=== PATIENT | male | born 1940 | race Native Hawaiian/Other Pacific Islander ===

== ENCOUNTER 2016-11-04 14:57 | Emergency (ER) | payer MEDICARE, OTHER ==
[2016-11-04] MEDS ORDERED: Dextrose 50% SYRINGE Inj (50 ml) ONE (15:00)
[2016-11-04 15:01] VITALS: BMI 29.0
[2016-11-04 15:07] LABS: ADD MANUAL DIFF? NO
[2016-11-04 15:11] LABS: BASO # 0.03 K/mm3 (0.0-2.0); BASO % 0.2 % (0.0-3.0); EOS # 0.2 (0.0-0.7); EOS % 1.9 % (1.5-5.0); GRAN # 7.19 (1.4-6.5); GRAN % 57.4 % (50.0-68.0); HEMATOCRIT 37.5 % (42.0-52.0); LYMPH # 4.2 (1.2-3.4); LYMPH % 33.3 % (22.0-35.0); MEAN CORPUSCULAR HEMOGLOBIN 29.7 pg (25.0-35.0); MEAN CORPUSCULAR HGB CONC 34.1 g/dl (31.0-37.0); MEAN PLATELET VOLUME 9.7 fl (7.0-11.0); MONO # 0.9 (0.1-0.6); MONO % 7.2 % (1.0-6.0); PLATELET COUNT 196 10^3/uL (120.0-450.0); RED CELL DISTRIBUTION WIDTH 14.6 % (11.5-14.5); WHITE BLOOD COUNT 12.5 10^3/ul (4.5-11.0)
[2016-11-04 15:20] LABS: BILIRUBIN,TOTAL 0.9 mg/dL (0.2-1.3); CALCIUM 8.6 mg/dL (8.4-10.5); MAGNESIUM 1.7 mg/dL (1.7-2.2); TOTAL PROTEIN 7.3 g/dL (5.8-8.3)
--- NOTE | 2016-11-04 15:20 | ED PDOC ---
Arrival/HPI - General Time Seen by Provider: 11/04/16 15:03 Historian: Patient - Critical Care Critical Care Minutes: 30 minutes - History of Present Illness Narrative History of Present Illness (Text): 11/04/16 15:10 Dawit Rendon is a 76 year old male, whose past medical history includes diabetes and hypertension, who presents to the emergency department complaining of low sugar levels according to family. Patient was at home this morning where he ate breakfast and took 30 units of humalog. Patient took a nap when family later heard him moaning. Patient's family called EMS thinking the patient had low sugar levels. En route to hospital, patient unable to take oral glucose. In emergency department, patient was given dextrose 1 amp which brought patient back to baseline. Patient states that he remembers taking his humalog medication this morning. Patient denies any fever, cough, urinary symptoms, diarrhea, or any other complaint at this time. Patient is noted to have slurred speech but patient's says it is due to his dentures. PMD Dr. Reza Time/Duration: 4-6 hours Symptom Onset: Gradual Symptom Course: Unchanged Severity Level: Mild Activities at Onset: Rest Context: Home Past Medical History - Provider Review Nursing Documentation Reviewed: Yes Family/Social History - Physician Review Nursing Documentation Reviewed: Yes Family/Social History: No Known Family HX Allergies/Home Meds Allergies/Adverse Reactions: Allergies No Known Allergies Allergy (Verified 11/04/16 15:01) Home Medications: Home Meds Medication Instructions Recorded Confirmed Allopurinol [Zyloprim] 10 mg PO DAILY 11/04/16 11/04/16 Atorvastatin [Lipitor] 40 mg PO HS 11/04/16 11/04/16 Dabigatran [Pradaxa] 75 mg PO DAILY 11/04/16 11/04/16 Finesteride 150 mg PO BID 11/04/16 11/04/16 Glimepiride [Amaryl] 4 mg PO DAILY 11/04/16 11/04/16 Humolog 30 units SQ TID 11/04/16 11/04/16 Insulin Glargine, Recombina 32 units SQ DAILY 11/04/16 11/04/16 [Lantus] Losartan [Cozaar] 100 mg PO DAILY 11/04/16 11/04/16 Metoprolol Tartrate [Lopressor] 50 mg PO DAILY 11/04/16 11/04/16 Tamsulosin [Flomax] 0.4 mg PO DAILY 11/04/16 11/04/16 amLODIPine [Norvasc] 10 mg PO DAILY 11/04/16 11/04/16 Review of Systems - Physician Review All systems were reviewed & negative as marked: Yes - Review of Systems Constitutional: Other (Low sugar level ). absent: Fevers, Night Sweats Eyes: absent: Vision Changes ENT: absent: Hearing Changes Respiratory: absent: SOB Cardiovascular: absent: Chest Pain Gastrointestinal: absent: Abdominal Pain Genitourinary Male: absent: Urinary Output Changes Musculoskeletal: absent: Back Pain, Neck Pain Skin: absent: Rash Neurological: absent: Headache Endocrine: absent: Diaphoresis Hemo/Lymphatic: absent: Easy Bleeding Psychiatric: absent: Depression Physical Exam Vital Signs Reviewed: Yes Vital Signs Temp Pulse Resp BP Pulse Ox 11/04/16 16:40 74 16 143/73 97 11/04/16 14:58 98.8 F 77 18 165/86 H 99 Temperature: Afebrile Blood Pressure: Hypertensive Pulse: Regular Respiratory Rate: Normal Appearance: Positive for: Well-Appearing, Non-Toxic, Comfortable Pain Distress: None Mental Status: Positive for: Alert and Oriented X 3 Finger Stick Blood Glucose: 223 - Systems Exam Head: Present: Atraumatic, Normocephalic Pupils: Present: PERRL Extroacular Muscles: Present: EOMI Conjunctiva: Present: Normal Mouth: Present: Moist Mucous Membranes Neck: Present: Normal Range of Motion Respiratory/Chest: Present: Clear to Auscultation, Good Air Exchange. No: Respiratory Distress, Accessory Muscle Use Cardiovascular: Present: Regular Rate and Rhythm, Normal S1, S2. No: Murmurs Abdomen: Present: Normal Bowel Sounds. No: Tenderness, Distention, Peritoneal Signs Back: Present: Normal Inspection Upper Extremity: Present: Normal Inspection. No: Cyanosis, Edema Lower Extremity: Present: Normal Inspection. No: Edema Neurological: Present: GCS=15, CN II-XII Intact, Speech Normal (initially slurred which quickly resolved after dextrose), Motor Func Grossly Intact, Normal Sensory Function, Normal Cerebellar Funct, Norm Deep Tendon Reflexes, Gait Normal, Memory Normal, Normal 2Pt Descrimination Skin: Present: Warm, Dry, Normal Color. No: Rashes Psychiatric: Present: Alert, Oriented x 3, Normal Insight, Normal Concentration Medical Decision Making ED Course and Treatment: 11/04/16 15:21 Impression: 76 year old male, brought in by EMS and accompanied by family, complaining of low sugar levels. Differential Diagnosis included but are not limited to: hypoglycemia, second to medication and diet Plan: -- EKG -- Head CT w/o contrast -- Chest X-ray -- Urinalysis -- Labs -- Reassess and disposition Progress Notes: EKG: Ordered, reviewed, and independently interpreted the EKG. Rate : 78 BPM Rhythm : NSR Interpretation : RBBB 11/04/16 16:[address] w/o contrast: Creator : Nate Zaman MD FINDINGS: HEMORRHAGE:No acute parenchymal, subarachnoid nor extra-axial hemorrhage. BRAIN: Moderate chronic periventricular white matter ischemic changes seen extending peripherally into the deep and subcortical regions bilaterally. More discrete chronic appearing infarct in the left frontal and right of parietal regions. There may also be some extension of these changes into white matter tracts of both basal nuclei. Dense vascular calcifications both carotid siphons. VENTRICLES:Mild moderate generalized volume loss. CALVARIUM:No acute calvarial fractures. PARANASAL SINUSES:Unremarkable as visualized. No significant inflammatory changes. MASTOID AIR CELLS:Unremarkable as visualized. No inflammatory changes. OTHER FINDINGS:Changes of bilateral cataract surgery. Findings consistent with exophthalmos however clinical correlation with ophthalmologic examination. IMPRESSION: No acute intracranial hemorrhage. Moderate chronic white matter ischemic changes with extension of these changes into white matter tracts of both basal nuclei. 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 Mild moderate generalized volume loss. 11/04/16 16:22 On reevaluation, Patient is feeling better, A&O x3, no slurred speech, and normal neuro exam. Family states that patient creatinine levels of 3.0 is baseline for him, will follow-up with PMD. They also state that after discussion they feel that he may have taken too much insulin since he didn't eat much for breakfast. He is comfortable to go home and will f/u with his PMD in 1-2days. Repeat FS improved. - Critical Care Critical Care Minutes: 30 minutes - Lab Interpretations Lab Results: 11/04/16 15:00 11/04/16 15:00 Lab Results 11/04/16 16:32: POC Glucose (mg/dL) 93 04/15/17 16:30: Urine Color Yellow, Urine Appearance Clear, Urine pH 6.0, Ur Specific [place] 1.020, Urine Protein 100 H, Urine Glucose (UA) 100 H, Urine Ketones Negative, Urine Blood Trace-lysed H, Urine Nitrate Negative, Urine Bilirubin Negative, Urine Urobilinogen 0.2, Ur Leukocyte Esterase Negative, Urine RBC 1 - 3, Urine WBC 0 - 2, Ur Epithelial Cells 0 - 2, Amorphous Sediment Few, Urine Bacteria Many, Urine Other [place] 11/04/16 15:03: POC Glucose (mg/dL) 223 H 11/04/16 15:00: WBC 12.5 H, RBC 4.31, Hgb 12.8 L, Hct 37.5 L, MCV 87.0, MCH 29.7 , MCHC 34.1, RDW 14.6 H, Plt Count 196, MPV 9.7, Gran % 57.4, Lymph % (Auto) 33.3, [place] % (Auto) 7.2 H, Eos % (Auto) 1.9, Baso % (Auto) 0.2, Gran # 7.19 H, Lymph # 4.2 H, [place] # 0.9 H, Eos # 0.2, Baso # 0.03, Sodium 140, Potassium 3.8, Chloride 104, Carbon Dioxide 25, Anion Gap 15, BUN 40 H, Creatinine 3.0 H, Est GFR ( Amer) 25, Est GFR (Non-Af Amer) 21, Random Glucose 33 L*, Calcium 8.6, Magnesium 1.7, Total Bilirubin 0.9, AST 36, ALT 29, Alkaline Phosphatase 83 , Total Protein 7.3, Albumin 3.7, Globulin 3.7, Albumin/Globulin Ratio 1.0 L I have reviewed the lab results: Yes - RAD Interpretation Radiology Orders: 11/04/16 15:04 CXR [CHEST PORTABLE] [RAD] Stat 11/04/16 15:09 HEAD W/O CONTRAST [CT] Stat - Medication Orders Current Medication Orders: Discontinued Medications Dextrose (Dextrose 50% Inj) Confirm Administered Dose 50 ml .ROUTE .STK-MED ONE Stop: 11/04/16 15:01 Last Admin: 11/04/16 14:55 Dose: 50 ML - Scribe Statement The provider has reviewed the documentation as recorded by the Gisel Valle Provider Scribe Attestation: All medical record entries made by the Scribe were at my direction and personally dictated by me. I have reviewed the chart and agree that the record accurately reflects my personal performance of the history, physical exam, medical decision making, and the department course for this patient. I have also personally directed, reviewed, and agree with the discharge instructions and disposition. Disposition/Present on Arrival - Present on Arrival Any Indicators Present on Arrival: No - Disposition Have Diagnosis and Disposition been Completed?: Yes Diagnosis: Hypoglycemia Disposition: HOME/ ROUTINE Disposition Time: 16:45 Patient Plan: Discharge Patient Problems: Current Active Problems Problem Status Diagnosed Hypoglycemia Acute Condition: IMPROVED Discharge Instructions (ExitCare): Diabetic Hypoglycemia (ED) Additional Instructions: Mr Rendon thank you for letting us take care of you today. Your provider was Dr. Plata. You were treated for Hypoglycemia. The emergency medical care you received today was directed at your acute symptoms. If you were prescribed any medication, please fill it and take as directed. It may take several days for your symptoms to resolve. Return to the Emergency Department if your symptoms worsen, do not improve, or if you have any other problems. Please contact your doctor or call one of the physicians/clinics you have been referred to that are listed on the Patient Visit Information form that is included in your discharge packet. Bring any paperwork you were given at discharge with you along with any medications you are taking to your follow up visit. Our treatment cannot replace ongoing medical care by a primary care provider (PCP) outside of the emergency department. Thank you for allowing the [facility] team to be part of your care today. If you had an X-Ray or CT scan: A Radiologist will review the ED reading if any change in treatment is needed we will contact you. If you had a blood, urine, or wound culture: It will take several days for the results, if any change in treatment is needed we will contact you. If you had an STI test: It will take 48 hours for the results. Please call after 1 week if you have not heard back. Referrals: Tara Reza MD [Family Provider] - Follow up with primary
[2016-11-04 15:44] LABS: POTASSIUM 3.8 mmol/L (3.6-5.0)
--- NOTE | 2016-11-04 15:50 | CT ---
PROCEDURE: CT HEAD WITHOUT CONTRAST. HISTORY: altered mental status COMPARISON: None available. TECHNIQUE: Axial computed tomography images were obtained through the head/brain without intravenous contrast. Radiation dose: Total exam DLP = 675.45 mGy-cm. This CT exam was performed using one or more of the following dose reduction techniques: Automated exposure control, adjustment of the mA and/or kV according to patient size, and/or use of iterative reconstruction technique. FINDINGS: HEMORRHAGE: No acute parenchymal, subarachnoid nor extra-axial hemorrhage. BRAIN: Moderate chronic periventricular white matter ischemic changes seen extending peripherally into the deep and subcortical regions bilaterally. More discrete chronic appearing infarct in the left frontal and right of parietal regions. There may also be some extension of these changes into white matter tracts of both basal nuclei. Dense vascular calcifications both carotid siphons. VENTRICLES: Mild moderate generalized volume loss. CALVARIUM: No acute calvarial fractures. PARANASAL SINUSES: Unremarkable as visualized. No significant inflammatory changes. MASTOID AIR CELLS: Unremarkable as visualized. No inflammatory changes. OTHER FINDINGS: Changes of bilateral cataract surgery. Findings consistent with exophthalmos however clinical correlation with ophthalmologic examination. IMPRESSION: No acute intracranial hemorrhage. Moderate chronic white matter ischemic changes with extension of these changes into white matter tracts of both basal nuclei. 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 Mild moderate generalized volume loss.
--- NOTE | 2016-11-04 16:40 | RAD ---
HISTORY: altered mental status COMPARISON: No prior. FINDINGS: LUNGS: Mild bibasilar atelectasis. PLEURA: No significant pleural effusion identified, no pneumothorax apparent. CARDIOVASCULAR: Mild cardiomegaly OSSEOUS STRUCTURES: Degenerative changes both shoulder girdles. Mild multilevel degenerative spondylosis of the thoracic spine. VISUALIZED UPPER ABDOMEN: Normal. OTHER FINDINGS: None. IMPRESSION: Mild bibasilar atelectasis. Chief Cardiomegaly.
[2016-11-04 16:42] VITALS: BP 143/73; PULSE 74; RESP 16; TEMP 98.8; O2SAT 97
[2016-11-04 16:50] LABS: URINE BILIRUBIN NEGATIVE (NEGATIVE); URINE BLOOD TRACE-LYSED (NEGATIVE); URINE GLUCOSE (UA) 100 mg/dL (NEGATIVE); URINE KETONE NEGATIVE (NEGATIVE); URINE LEUKOCYTE ESTERASE NEGATIVE Leu/uL (NEGATIVE); URINE PROTEIN 100 mg/dL (<30 mg/dL); URINE UROBILINOGEN 0.2 E.U./dL (<1 E.U./dL)
[2016-11-04 16:55] LABS: URINE APPEARANCE CLEAR (CLEAR); URINE COLOR YELLOW (YELLOW)
[2016-11-04 17:33] LABS: URINE AMORPHOUS SEDIMENT FEW; URINE EPITHELIAL CELLS 0 - 2 /hpf (0-5); URINE WBC 0 - 2 /hpf (0-6)
[2016-11-04 17:34] LABS: URINE BACTERIA MANY (NEG)
--- NOTE | 2016-11-05 09:46 | CARD ---
APPROVED REPORT EKG Measurement Heart [id number] <Conclusion> Normal sinus rhythm Right bundle branch block
== END 2016-11-04 16:45 | disposition home or self-care (01) ==
LOC: ED 14:57 → MERGE 14:57 → ED 16:45
DX: E11.649 Type 2 diabetes mellitus with hypoglycemia without coma (principal); Z79.4 Long term (current) use of insulin

== ENCOUNTER 2017-11-11 01:13 | Emergency (ER) | payer MEDICARE, OTHER ==
[2017-11-11 01:26] VITALS: TEMP 97.7
[2017-11-11 01:34] VITALS: BMI 28.3
[2017-11-11] MEDS ORDERED: Dextrose 50% SYRINGE Inj (50 ml) IVP STA (02:56)
[2017-11-11 03:04] LABS: ALB/GLOB RATIO 1.1 (1.1-1.8); ALBUMIN 3.9 g/dL (3.0-4.8); CALCIUM 9.4 mg/dL (8.4-10.5)
[2017-11-11 03:11] LABS: HEMOGLOBIN 9.4 g/dL (14.0-18.0); MEAN CELL VOLUME 92.3 fl (80.0-105.0); MEAN CORPUSCULAR HEMOGLOBIN 30.2 pg (25.0-35.0); MEAN CORPUSCULAR HGB CONC 32.8 g/dl (31.0-37.0); MEAN PLATELET VOLUME 10.3 fl (7.0-11.0); RBC 3.11 10^6/uL (3.5-6.1); RED CELL DISTRIBUTION WIDTH 18.5 % (11.5-14.5); WHITE BLOOD COUNT 9.2 10^3/ul (4.5-11.0)
--- NOTE | 2017-11-11 03:35 | ED PDOC ---
Arrival/HPI - General Chief Complaint: Altered Mental Status Time Seen by Provider: 11/11/17 01:29 Historian: Patient, Family - History of Present Illness Narrative History of Present Illness (Text): 11/11/17 02:32 77 year old male, whose past medical history includes diabetes and hypertension , presents to the emergency department following hypoglycemic episode that began at home. Patient knew his blood sugar was low and was given something to drink which help orient him minimally. Patient was brought into the where it was noted that his blood sugar was low. Given D50 intravenously with increase of his blood sugar. Patient was awake and alert and fully responsive. According to family, patient had not eaten enough which probably lowered his blood sugar. Patient currently feels fine. Patient denies any fever, chills, chest pain, shortness of breath, nausea, vomiting, diarrhea, urinary symptoms, back pain, neck pain, headache, dizziness, or any other complaints. Symptom Onset: Gradual Symptom Course: Unchanged Activities at Onset: Light Context: Home Past Medical History - Provider Review Nursing Documentation Reviewed: Yes - Infectious Disease Hx of Infectious Diseases: None - Cardiac Hx Cardiac Disorders: Yes Hx Hypertension: Yes - Endocrine/Metabolic Hx Endocrine Disorders: Yes Hx Diabetes Mellitus Type 1: Yes - Hematological/Oncological Hx Blood Disorders: No - Psychiatric Hx Substance Use: No Family/Social History - Physician Review Nursing Documentation Reviewed: Yes Family/Social History: No Known Family HX Smoking Status: Former Smoker Hx Alcohol Use: Yes Hx Substance Use: No Allergies/Home Meds Allergies/Adverse Reactions: Allergies No Known Allergies Allergy (Verified 11/04/16 15:01) Home Medications: Home Meds Medication Instructions Recorded Confirmed Atorvastatin [Lipitor] 40 mg PO HS 11/04/16 11/11/17 Losartan [Cozaar] 100 mg PO DAILY 11/04/16 11/11/17 Tamsulosin [Flomax] 0.4 mg PO DAILY 11/04/16 11/11/17 amLODIPine [Norvasc] 10 mg PO HS 11/04/16 11/11/17 Aspirin [Lo-Dose Aspirin EC] 81 mg PO HS 11/11/17 11/11/17 Cholecalciferol (Vitamin D3) 1 tab PO DAILY 11/11/17 11/11/17 [D3-5000 90 mg-5000 Iu] Febuxostat [Uloric] 40 mg PO DAILY 11/11/17 11/11/17 Finasteride [Proscar] 5 mg PO HS 11/11/17 11/11/17 Furosemide [Lasix] 40 mg PO MWF 11/11/17 11/11/17 Glucosamine Sulfate Dipot Chlr 1,000 mg PO DAILY 11/11/17 11/11/17 [Glucosamine] Insulin Glargine, Recombina 30 unit SC HS 11/11/17 11/11/17 [Lantus] Isosorbide Dinitrate 30 mg PO DAILY 11/11/17 11/11/17 Metoprolol Succinate [Toprol XL] 50 mg PO 11/11/17 11/11/17 Multivitamin [Multivitamins] 1 each PO 11/11/17 11/11/17 [place]-3 Fatty Acids/Fish Oil [Fish 1,000 mg PO BID 11/11/17 11/11/17 Oil 1,000 mg Capsule] Pregabalin [Lyrica] 50 mg PO DAILY 11/11/17 11/11/17 Psyllium Husk [Metamucil] 660 gm PO DAILY 11/11/17 11/11/17 Ranolazine [Ranexa] 1,000 mg PO BID 11/11/17 11/11/17 Review of Systems - Physician Review All systems were reviewed & negative as marked: Yes - Review of Systems Constitutional: absent: Fevers, Other (Chills) Respiratory: absent: SOB Cardiovascular: absent: Chest Pain Gastrointestinal: absent: Diarrhea, Nausea, Vomiting Genitourinary Male: absent: Dysuria, Frequency, Hematuria Musculoskeletal: absent: Back Pain, Neck Pain Neurological: absent: Headache, Dizziness Physical Exam Vital Signs Reviewed: Yes Vital Signs Temp Pulse Resp BP Pulse Ox 11/11/17 03:13 64 21 157/72 H 91 L 11/11/17 01:25 97.7 F 67 20 116/56 L 99 Temperature: Afebrile Blood Pressure: Hypotensive Pulse: Regular Respiratory Rate: Normal Appearance: Positive for: Well-Appearing, Non-Toxic, Comfortable Pain Distress: None Mental Status: Positive for: Alert and Oriented X 3 Finger Stick Blood Glucose: 123 - Systems Exam Head: Present: Atraumatic, Normocephalic Pupils: Present: PERRL Extroacular Muscles: Present: EOMI Conjunctiva: Present: Normal Mouth: Present: Moist Mucous Membranes Neck: Present: Normal Range of Motion Respiratory/Chest: Present: Clear to Auscultation, Good Air Exchange. No: Respiratory Distress, Accessory Muscle Use Cardiovascular: Present: Regular Rate and Rhythm, Normal S1, S2. No: Murmurs Abdomen: No: Tenderness, Distention, Peritoneal Signs Back: Present: Normal Inspection Upper Extremity: Present: Normal Inspection. No: Cyanosis, Edema Lower Extremity: Present: Normal Inspection. No: Edema Neurological: Present: GCS=15, CN II-XII Intact, Speech Normal Skin: Present: Warm, Dry, Normal Color. No: Rashes Psychiatric: Present: Alert, Oriented x 3, Normal Insight, Normal Concentration Medical Decision Making ED Course and Treatment: 11/11/17 02:34 Impression: 77 year old male presents following hypoglycemic episode that began at home. Plan: -- EKG -- Labs -- IV Fluids -- Reassess and disposition Prior Visits: Notes and results from previous visits were reviewed. Patient was last seen in the emergency department on 11/04/16 15:10 presents complaining of low sugar levels according to family. patient was discharged. Progress Notes: 11/11/17 04:00 EKG shows NSR at 65 BPM with first degree AV block. RBBB. No change from . Interpreted by me. 11/11/17 05:07 Patient with euglycemic levels here in the ER remained asymptomatic throughout his stay. Discussion on Insulin dosage and proper diet given to patient. Patient in agreement with plan to be discharged home. Patient is stable for discharge. Patient was instructed to follow up with physician or return if symptoms worsen or new concerning symptoms arise. - Lab Interpretations Lab Results: 11/11/17 02:00 11/11/17 02:00 Lab Results 11/11/17 02:00: WBC 9.2 D, RBC 3.11 L, Hgb 9.4 L, Hct 28.7 L, MCV 92.3, MCH 30.2, MCHC 32.8, RDW 18.5 H, Plt Count 251, MPV 10.3 11/11/17 02:00: Sodium 143, Potassium 3.8, Chloride 108 H, Carbon Dioxide 24, Anion Gap 15, BUN 42 H, Creatinine 3.4 H, Est GFR ( Amer) 21, Est GFR ( Non-Af Amer) 18, Random Glucose 26 L* D, Calcium 9.4, Total Bilirubin 0.4, AST 29, ALT 24, Alkaline Phosphatase 108, Total Protein 7.3, Albumin 3.9, Globulin 3.4, Albumin/Globulin Ratio 1.1 11/11/17 01:22: POC Glucose (mg/dL) 215 H I have reviewed the lab results: Yes - EKG Interpretation Interpreted by ED Physician: Yes Type: 12 lead EKG - Medication Orders Current Medication Orders: Dextrose (Dextrose 5% In Water 1000 Ml) 1,000 mls @ 100 mls/hr IV .Q10H URBANO Last Admin: 11/11/17 03:00 Dose: 100 mls/hr eMAR Start Stop Document 11/11/17 03:00 CNR (Rec: 11/11/17 03:00 CNR [id number]) Intravenous Solution Start Date 11/11/17 Start Time 03:00 Discontinued Medications Dextrose (Dextrose 50% Inj) 50 ml IVP STAT STA Stop: 11/11/17 02:57 Last Admin: 11/11/17 01:20 Dose: 50 ml IVP Administration Document 11/11/17 01:20 CNR (Rec: 11/11/17 03:00 CNR [id number]) Charges for Administration # of IVP Administrations 1 - Scribe Statement The provider has reviewed the documentation as recorded by the Gisel Strange Provider Scribe Attestation: All medical record entries made by the Scribe were at my direction and personally dictated by me. I have reviewed the chart and agree that the record accurately reflects my personal performance of the history, physical exam, medical decision making, and the department course for this patient. I have also personally directed, reviewed, and agree with the discharge instructions and disposition. Disposition/Present on Arrival - Present on Arrival Any Indicators Present on Arrival: No History of DVT/PE: No History of Uncontrolled Diabetes: No Urinary Catheter: No History of Decub. Ulcer: No History Surgical Site Infection Following: None - Disposition Have Diagnosis and Disposition been Completed?: Yes Diagnosis: Diabetic hypoglycemia Disposition: HOME/ ROUTINE Disposition Time: 05:03 Patient Plan: Discharge Patient Problems: Current Active Problems Problem Status Onset Diabetic hypoglycemia Acute Condition: GOOD Discharge Instructions (ExitCare): Low Blood Sugar, Adult (DC), Low Blood Sugar in People With Diabetes, Diabetes and Diet Additional Instructions: Maintain proper diet/adjust your insulin accordingly/follow up with your doctor this week Referrals: Will Tobias Reelizabeth, [Primary Care Provider] - Follow up with primary Forms: [place] (Dive[employer])
[2017-11-11 04:13] VITALS: BP 157/72; PULSE 64; RESP 21; O2SAT 91
--- NOTE | 2017-11-11 21:40 | CARD ---
APPROVED REPORT EKG Measurement Heart [id number] <Conclusion> Sinus rhythm with 1st degree AV block Right bundle branch block Abnormal ECG
== END 2017-11-11 05:08 | disposition home or self-care (01) ==
LOC: ED 01:13
DX: E11.649 Type 2 diabetes mellitus with hypoglycemia without coma (principal); I10 Essential (primary) hypertension; Z87.891 Personal history of nicotine dependence
CPT/HCPCS: 80053; 82948; 85027; 93005; 96374; 99284; J7070